=== PATIENT | male | born 1970 | race Two or more races ===

== ENCOUNTER 2019-03-07 09:51 | Inpatient (IN) | payer BC, MEDICAID ==
[~2019-03-07] VITALS: Ht 182.9 cm; Wt 90.7 kg
[2019-03-07] MEDS ORDERED: DILTIAZEM HCL 5MG/ML 5ML VIAL IV ONE (10:30)
[2019-03-07 10:35] LABS: BASOPHILS % 0.6 % (0.0-2.0); EOSINOPHILS % 0.2 % (0.0-5.0); HEMATOCRIT. 46.6 % (42.0-52.0); HEMOGLOBIN. 15.9 g/dL (14.0-18.0); LYMPHOCYTES % 12.9 % (20.0-50.0); MEAN CORPUSCULAR HEMOGLOBIN 32.6 pg (28.0-32.0); MEAN CORPUSCULAR VOLUME 95.6 fL (80.0-94.0); MEAN PLATELET VOLUME 7.5 fl (7.4-10.4); MONOCYTES % 7.6 % (2.0-8.0); NEUTROPHILS % 78.7 % (40.0-76.0); PLATELET 374 x1000/uL (130-400); RED BLOOD CELL COUNT 4.88 mill/uL (4.7-6.1); RED CELL DISTRIBUTION WIDTH 13.6 % (11.6-14.6)
[2019-03-07 10:40] LABS: CHLORIDE 107 mEq/L (98-107)
[2019-03-07 10:41] LABS: PROTHROMBIN TIME 10.3 sec (9.6-11.0)
[2019-03-07] MEDS ORDERED: SODIUM CHLORIDE 0.9% 1,000 ML IV ONE (10:44)
[2019-03-07 10:50] LABS: ETHANOL BLOOD < 10 mg/dL
[2019-03-07 11:47] LABS: CLARITY URINE CLEAR (CLEAR); COLOR URINE YELLOW (YELLOW); KETONES URINE 1+ (NEGATIVE); LEUKOCYTE ESTERASE URINE NEGATIVE (NEGATIVE); NITRITE URINE NEGATIVE (NEGATIVE); OCCULT BLOOD URINE TRACE (NEGATIVE); PH URINE 6.5 (4.5-8.0); PROTEIN URINE NEGATIVE (NEGATIVE); SPECIFIC GRAVITY URINE 1.012 (1.005-1.030); UROBILINOGEN URINE 0.2 E.U./dL (0.2-1.0)
[2019-03-07 12:36] LABS: *AMPHETAMINES SCREEN URINE PRESUMTIVE POSITIVE (NEGATIVE); *BARBITURATES SCREEN URINE NEGATIVE (NEGATIVE); *BENZODIAZEPINES SCREEN URINE NEGATIVE (NEGATIVE)
[2019-03-07 12:37] LABS: *COCAINE SCREEN URINE NEGATIVE (NEGATIVE); OPIATES URINE SCREEN NEGATIVE (NEGATIVE)
[2019-03-07 12:38] LABS: CANNABINOID URINE SCREEN PRESUMTIVE POSITIVE (NEGATIVE); METHADONE URINE SCREEN NEGATIVE (NEGATIVE)
[2019-03-07 12:42] LABS: PHENCYCLIDINE URINE SCREEN NEGATIVE (NEGATIVE)
[2019-03-07] MEDS ORDERED: GUAIFENESIN 200MG/10ML SUGAR FREE UDC PO PRN (14:15)
[2019-03-07] MEDS ORDERED: DOCUSATE SODIUM 100MG CAPSULE PO PRN (14:15)
[2019-03-07] MEDS ORDERED: LORAZEPAM 0.5MG TABLET PO PRN (14:15)
[2019-03-07] MEDS ORDERED: ONDANSETRON HCL 4MG/2ML INJ IV PRN (14:15)
[2019-03-07] MEDS ORDERED: ACETAMINOPHEN 325MG TABLET PO PRN (14:15)
[2019-03-07] MEDS ORDERED: CLONIDINE 0.1MG TABLET PO PRN (14:15)
[2019-03-07] MEDS ORDERED: MAGNESIUM/ALUMINUM HYDROXIDE/SIMETHICONE 30ML UDC PO PRN (14:15)
[2019-03-07] MEDS ORDERED: IPRATROPIUM/ALBUTEROL 0.5-3(2.5)MG/3ML NEB NEB PRN (14:15)
[2019-03-07] MEDS ORDERED: KETOROLAC 15MG/ML VIAL IV PRN (14:15)
[2019-03-07] MEDS ORDERED: ZOLPIDEM TARTRATE 5MG TABLET PO PRN (14:15)
[2019-03-07] MEDS ORDERED: NITROGLYCERIN 0.4MG TABLET SL SL PRN (14:15)
[2019-03-07 16:00] VITALS: BP 94/48
[2019-03-07 18:33] LABS: T4 FREE 1.09 ng/dL (0.76-1.46)
[2019-03-07 19:06] VITALS: BP 110/54
[2019-03-07] MEDS: DILTIAZEM HCL 60MG TABLET PO SCH (19:09)
[2019-03-07] MEDS: ENOXAPARIN 100MG/ML SYR SUBCUT SCH (19:11)
[2019-03-07 20:00] VITALS: BP 110/54
[2019-03-07] MEDS: FAMOTIDINE 20MG TABLET PO SCH (21:17)
[2019-03-08] VITALS: BP 112/81
[2019-03-08] MEDS: DILTIAZEM HCL 60MG TABLET PO SCH ×2 (00:11→05:23)
[2019-03-08 00:14] LABS: CREATINE KINASE 134 IU/L (39-308)
[2019-03-08 00:15] LABS: CREATINE KINASE MB FRACTION 1.2 ng/mL (0.5-3.6)
[2019-03-08 04:00] VITALS: BP 116/70
[2019-03-08] MEDS: ENOXAPARIN 100MG/ML SYR SUBCUT SCH (05:23)
[2019-03-08 07:19] LABS: CREATINE KINASE 114 IU/L (39-308)
[2019-03-08 07:21] LABS: CREATINE KINASE MB FRACTION < 1.0 ng/mL (0.5-3.6)
[2019-03-08 08:00] VITALS: BP 112/76
[2019-03-08] MEDS: FAMOTIDINE 20MG TABLET PO SCH (08:59)
[2019-03-08] MEDS ORDERED: ASPIRIN 325MG EC TABLET PO SCH (09:00)
[2019-03-08 11:25] VITALS: BP 112/76
== END 2019-03-08 12:05 | disposition home or self-care (01) | DRG 310 ==
LOC: ER 09:51 → 7WST 12:21 → EDBEDREQTM 12:25 → EDBEDREQ 12:25 → ENRESERV 13:59
PROVIDERS: ADMIT Internal Medicine; ATTEND Internal Medicine
DX: I48.91 Unspecified atrial fibrillation (principal); B19.20 Unspecified viral hepatitis C without hepatic coma; F12.10 Cannabis abuse, uncomplicated; F15.10 Other stimulant abuse, uncomplicated; Z79.82 Long term (current) use of aspirin; Z79.899 Other long term (current) drug therapy
CPT/HCPCS: 36415; 71045; 80061; 80305; 80320; 81003; 82550; 82553; 83036; 83880; 84439; 84443; 84484; 93005; 93970; 99285; J1650; J3490; G0480